=== PATIENT | female | born 1990 | race Caucasian/White ===

== ENCOUNTER 2019-08-25 13:44 | Emergency (ER) | payer BC, OTHER ==
[~2019-08-25] VITALS: Ht 170.1 cm; Wt 59.3 kg
[~2019-08-25 13:44] MED LIST: ACHD5005 PO; CPR500T PO; PHEN100T26 PO
--- NOTE | 2019-08-25 13:54 | ED General ---
General Stated Complaint: VOMITING, SEEN AT [facility] IN [facility] History of Present Illness Date Seen by Provider: Aug 25, 2019 Time Seen by Provider: 13:54 Initial Comments Patient is a 29-year-old female who comes to the emergency department with nausea and vomiting over the last 5 days. Her symptoms worsened over the last 24 hours. She was seen at [facility] and was given Zofran but this did not relieve her symptoms. She complains of general malaise. No fever. Denies abdominal pain other than when she is vomiting. No pelvic pain. Last menstrual cycle was 3 weeks earlier. No irregular vaginal bleeding or discharge. No fever. Denies urinary symptoms. Allergies and Home Medications Allergies Coded Allergies: No Known Drug Allergies (Unverified , 07/25/13) Home Medications Ciprofloxacin 500 Mg Tablet, 1 TAB PO BID Prescribed by: MICHELL BUENROSTRO on 07/25/13 033 Hydrocodone Bit/Acetaminophen 1 Each Tablet, 1 EACH PO Q6H PRN for PAIN Prescribed by: MICHELL BUENROSTRO on 07/25/13 033 Phenazopyridine Hcl 100 Mg Tablet, 1 TAB PO TID PRN for PAIN Prescribed by: MICHELL BUENROSTRO on 07/25/13 033 Promethazine HCl 25 Mg Supp.rect, 25 MG RC tidprn PRN for NAUSEA/VOMITING Prescribed by: POLI GRACE on 08/25/19 1517 Patient Home Medication List Home Medication List Reviewed: Yes Review of Systems Review of Systems Constitutional: see HPI EENTM: no symptoms reported Respiratory: no symptoms reported Cardiovascular: no symptoms reported Gastrointestinal: see HPI Genitourinary: no symptoms reported Musculoskeletal: no symptoms reported Skin: no symptoms reported All Other Systems Reviewed Negative Unless Noted: Yes Past Nemnqzh-Tddbzn-Qdlkue Hx Patient Social History Recent Foreign Travel: No Contact w/Someone Who Travel: No Physical Exam Vital Signs Vital Signs - First Documented 08/25/19 13:54 Temp 37.3 Pulse 71 Resp 18 B/P (MAP) 106/62 (77) Pulse Ox 98 O2 Delivery Room Air Capillary Refill : Height, Weight, BMI Height: '" Weight: lbs. oz. kg; BMI Method: General Appearance: No Apparent Distress, WD/WN Eyes: Bilateral Eye Normal Inspection, Bilateral Eye PERRL HEENT: PERRL/EOMI, Normal ENT Inspection Neck: Full Range of Motion, Normal Inspection, Supple Respiratory: Chest Non Tender, Lungs Clear Cardiovascular: Regular Rate, Rhythm, No Edema Gastrointestinal: Non Tender, Soft Extremity: Normal Capillary Refill Neurologic/Psychiatric: Alert, Oriented x3 Skin: Normal Color Progress/Results/Core Measures Suspected Sepsis SIRS Temperature: Pulse: Respiratory Rate: Laboratory Tests 08/25/19 14:30: White Blood Count 6.5 Blood Pressure / Mean: Laboratory Tests 08/25/19 14:30: Creatinine 0.82, Platelet Count 170, Total Bilirubin 0.4 Results/Orders Lab Results Laboratory Tests Test 08/25/19 14:08 08/25/19 14:30 Range/Units Urine Color YELLOW Urine Clarity CLEAR Urine pH 6.0 5-9 Urine Specific [place] >1.030 1.016-1.022 Urine Protein NEGATIVE NEGATIVE Urine Glucose (UA) NEGATIVE NEGATIVE Urine Ketones 2+ H NEGATIVE Urine Nitrite NEGATIVE NEGATIVE Urine Bilirubin NEGATIVE NEGATIVE Urine Urobilinogen 0.2 < = 1.0 MG/DL Urine Leukocyte Esterase NEGATIVE NEGATIVE Urine RBC (Auto) NEGATIVE NEGATIVE Urine RBC NONE /HPF Urine WBC NONE /HPF Urine Squamous Epithelial Cells 5-10 /HPF Urine Crystals NONE /LPF Urine Bacteria NONE /HPF Urine Casts NONE /LPF Urine Mucus MODERATE H /LPF Urine Culture Indicated NO Urine Test NEGATIVE NEGATIVE White Blood Count 6.5 4.3-11.0 10^3/uL Red Blood Count 5.32 4.35-5.85 10^6/uL Hemoglobin 15.8 11.5-16.0 G/DL Hematocrit 48 35-52 % Mean Corpuscular Volume 91 80-99 FL Mean Corpuscular Hemoglobin 30 25-34 PG Mean Corpuscular Hemoglobin Concent 33 32-36 G/DL Red Cell Distribution Width 13.0 10.0-14.5 % Platelet Count 170 130-400 10^3/uL Mean Platelet Volume 13.3 H 7.4-10.4 FL Neutrophils (%) (Auto) 76 H 42-75 % Lymphocytes (%) (Auto) 17 12-44 % Monocytes (%) (Auto) 6 0-12 % Eosinophils (%) (Auto) 2 0-10 % Basophils (%) (Auto) 0 0-10 % Neutrophils # (Auto) 4.9 1.8-7.8 X 10^3 Lymphocytes # (Auto) 1.1 1.0-4.0 X 10^3 Monocytes # (Auto) 0.4 0.0-1.0 X 10^3 Eosinophils # (Auto) 0.1 0.0-0.3 10^3/uL Basophils # (Auto) 0.0 0.0-0.1 10^3/uL Sodium Level 135 135-145 MMOL/L Potassium Level 3.8 3.6-5.0 MMOL/L Chloride Level 97 L 98-107 MMOL/L Carbon Dioxide Level 24 21-32 MMOL/L Anion Gap 14 5-14 MMOL/L Blood Urea Nitrogen 15 7-18 MG/DL Creatinine 0.82 0.60-1.30 MG/DL Estimat Glomerular Filtration Rate > 60 BUN/Creatinine Ratio 18 Glucose Level 104 70-105 MG/DL Calcium Level 10.4 H 8.5-10.1 MG/DL Corrected Calcium 8.5-10.1 MG/DL Total Bilirubin 0.4 0.1-1.0 MG/DL Aspartate Amino Transf (AST/SGOT) 19 5-34 U/L Alanine Aminotransferase (ALT/SGPT) 12 0-55 U/L Alkaline Phosphatase 66 40-136 U/L Total Protein 9.5 H 6.4-8.2 GM/DL Albumin 5.0 H 3.2-4.5 GM/DL Lipase 40 8-78 U/L My Orders Orders - POLI GRACE DO Urinalysis (08/25/19 14:01) Hcg,Qualitative Urine (08/25/19 14:01) Cbc With Automated Diff (08/25/19 14:01) Comprehensive Metabolic Panel (08/25/19 14:01) Prochlorperazine Injection (Compazine In (08/25/19 14:15) Diphenhydramine Injection (Benadryl Inje (08/25/19 14:15) Famotidine Injection (Pepcid Injection) (08/25/19 14:15) Ns Iv 1000 Ml (Sodium Chloride 0.9%) (08/25/19 14:15) Lipase (08/25/19 14:14) Ns Iv 1000 Ml (Sodium Chloride 0.9%) (08/25/19 15:00) Ondansetron Injection (Zofran Injectio (08/25/19 15:45) Medications Given in ED Current Medications Medications Dose Ordered Sig/Ashleigh Route Start Time Stop Time Status Last Admin Dose Admin Diphenhydramine HCl 25 mg ONCE ONCE IVP 08/25/19 14:15 08/25/19 14:16 DC 08/25/19 14:30 25 MG Famotidine 20 mg ONCE ONCE IVP 08/25/19 14:15 08/25/19 14:16 DC 08/25/19 14:29 20 MG Ondansetron HCl 4 mg ONCE ONCE IVP 08/25/19 15:45 08/25/19 15:46 DC 08/25/19 15:59 4 MG Prochlorperazine Edisylate 10 mg ONCE ONCE IV 08/25/19 14:15 08/25/19 14:16 DC 08/25/19 14:29 10 MG Vital Signs/I&O 08/25/19 13:54 Temp 37.3 Pulse 71 Resp 18 B/P (MAP) 106/62 (77) Pulse Ox 98 O2 Delivery Room Air Capillary Refill : Progress Note : Time: 14:00 Progress Note Patient is seen and examined on arrival to her room. Overall, her exam is reassuring. Her abdomen is soft and nontender and with no guarding or rebound, particularly in the right upper quadrant. Patient does appear mildly dry and dehydrated. Today, we will check basic labs, urinalysis, urine , and given IV fluids along with some medications for symptom relief. 14:45: Patient is re-examined. She is currently s/p IV compazine and benadryl and resting quietly. She does verbalize some relief of nausea symptoms. Bedside ultrasound is completed. The patient's gallbladder is easily visualized. Anterior wall is less than 3 mm thick. No pericholecystic fluid. No stones or sludge are seen. No tenderness in the right upper quadrant again on this exam. Labs pending. UA completed and neg but + ketones. Additional IVF's ordered. 15:30: Now c/o return of nausea. Zofran is ordered. 16:33: Patient is currently feeling improved. She is tolerating by mouth. Plan is for discharge home. She is given a prescription for promethazine suppositories. Recommended to follow up with primary care doctor or come back to the ER for any new or worsening symptoms. Departure Impression Primary Impression: Gastroenteritis Disposition: 01 HOME, SELF-CARE Condition: Improved Departure-Patient Inst. Referrals: MATT MERRITT MD (PCP/Family) Primary Care Physician Scripts Promethazine HCl (Phenergan) 25 Mg Supp.rect 25 MG RC tidprn PRN for NAUSEA/VOMITING, #8 SUPP.RECT Prov: POLI GRACE DO 08/25/19 POLI GRACE DO Aug 25, 2019 13:54 POS
[2019-08-25] MEDS ORDERED: diphenhydrAMINE 50 MG/ML INJ (BENADRYL) IVP ONE (14:15)
[2019-08-25] MEDS ORDERED: PROCHLORPERAZINE 10 MG/2ML INJ (COMPAZINE) IV ONE (14:15)
[2019-08-25] MEDS ORDERED: FAMOTIDINE 20MG/2ML IV (PEPCID) IVP ONE (14:15)
[2019-08-25] MEDS ORDERED: NS IV 1000 ML 1,000 ML IV SCH ×2 (14:15→15:00)
[2019-08-25 14:20] LABS: BILIRUBIN,URINE NEGATIVE (NEGATIVE); CLARITY,URINE CLEAR; COLOR,URINE YELLOW; GLUCOSE, URINE (UA) NEGATIVE (NEGATIVE); KETONES,URINE 2+ (NEGATIVE); LEUKOCYTE ESTERASE ,URINE NEGATIVE (NEGATIVE); NITRITE,URINE NEGATIVE (NEGATIVE); PROTEIN,URINE NEGATIVE (NEGATIVE)
[2019-08-25 14:43] LABS: HEMATOCRIT 48 % (35-52); HEMOGLOBIN 15.8 G/DL (11.5-16.0); MEAN CORPUSCULAR HEMOGLOBIN 30 PG (25-34); WHITE BLOOD COUNT 6.5 10^3/uL (4.3-11.0)
[2019-08-25 14:44] LABS: BASOPHILS % (AUTO) 0 % (0-10); EOSINOPHILS # (AUTO) 0.1 10^3/uL (0.0-0.3); EOSINOPHILS % (AUTO) 2 % (0-10); LYMPHOCYTES # (AUTO) 1.1 X 10^3 (1.0-4.0); LYMPHOCYTES % (AUTO) 17 % (12-44); MEAN CORPUSCULAR HGB CONC 33 G/DL (32-36); MEAN CORPUSCULAR VOLUME 91 FL (80-99); MEAN PLATELET VOLUME 13.3 FL (7.4-10.4); MONOCYTES # (AUTO) 0.4 X 10^3 (0.0-1.0); MONOCYTES % (AUTO) 6 % (0-12); NEUTROPHILS # (AUTO) 4.9 X 10^3 (1.8-7.8); NEUTROPHILS % (AUTO) 76 % (42-75); PLATELET COUNT 170 10^3/uL (130-400)
[2019-08-25 15:03] LABS: BUN/CREATININE RATIO 18; CARBON DIOXIDE 24 MMOL/L (21-32); CHLORIDE 97 MMOL/L (98-107); CREATININE SERUM 0.82 MG/DL (0.60-1.30); GFR ESTIMATED > 60; POTASSIUM 3.8 MMOL/L (3.6-5.0); SODIUM 135 MMOL/L (135-145)
[2019-08-25 15:04] LABS: ALANINE AMINOTRANSFERASE 12 U/L (0-55); ALKALINE PHOSPHATASE 66 U/L (40-136); BILIRUBIN,TOTAL 0.4 MG/DL (0.1-1.0); CALCIUM 10.4 MG/DL (8.5-10.1); GLUCOSE 104 MG/DL (70-105); LIPASE 40 U/L (8-78); TOTAL PROTEIN 9.5 GM/DL (6.4-8.2)
[2019-08-25] MEDS ORDERED: PROM25SU43 RC (15:17)
[2019-08-25] MEDS ORDERED: ONDANSETRON 4 MG/2 ML (SDV) Z0FRAN IVP ONE (15:45)
[2019-08-25 16:40] VITALS: BP 108/69
== END 2019-08-25 16:40 | disposition home or self-care (01) ==
LOC: ER FS 13:47 → MERGE 13:47 → ER FS 16:40
DX: K52.9 Noninfective gastroenteritis and colitis, unspecified (principal)
CPT/HCPCS: 36415; 80053; 81000; 83690; 84703; 85025; 96361; 96374; 96375

== ENCOUNTER → 2019-11-28 | Outpatient (CLI) | payer BC ==
[~2019-11-28] MED LIST changes: +PROM25SU43 RC
== END ==
LOC: LAB 10:51
PROVIDERS: ATTEND Family Medicine
DX: Z34.80 Encounter for supervision of other normal pregnancy, unspecified trimester (principal)

== ENCOUNTER → 2020-02-20 | Outpatient (CLI) | payer BC ==
[2020-02-20 10:40] LABS: HEMATOCRIT 34 % (35-52); HEMOGLOBIN 10.8 G/DL (11.5-16.0); MEAN CORPUSCULAR HEMOGLOBIN 30 PG (25-34); MEAN CORPUSCULAR HGB CONC 32 G/DL (32-36); MEAN CORPUSCULAR VOLUME 93 FL (80-99); WHITE BLOOD COUNT 11.1 10^3/uL (4.3-11.0)
[2020-02-20 10:41] LABS: BASOPHILS % (AUTO) 0 % (0-10); EOSINOPHILS % (AUTO) 9 % (0-10); LYMPHOCYTES % (AUTO) 19 % (12-44); MEAN PLATELET VOLUME 13.4 FL (7.4-10.4); MONOCYTES % (AUTO) 6 % (0-12); NEUTROPHILS % (AUTO) 65 % (42-75); PLATELET COUNT 160 10^3/uL (130-400)
[2020-02-20 10:42] LABS: LYMPHOCYTES # (AUTO) 2.1 X 10^3 (1.0-4.0); MONOCYTES # (AUTO) 0.7 X 10^3 (0.0-1.0); NEUTROPHILS # (AUTO) 7.2 X 10^3 (1.8-7.8)
== END ==
LOC: LAB FS 10:02
PROVIDERS: ATTEND Family Medicine
DX: Z34.83 Encounter for supervision of other normal pregnancy, third trimester (principal); Z3A.00 Weeks of gestation of pregnancy not specified
CPT/HCPCS: 36415; 82950; 85025; 86780

== ENCOUNTER → 2020-04-16 | Outpatient (CLI) | payer BC | LOC: LABNPT 15:15 | PROVIDERS: ATTEND Family Medicine | DX: Z34.80 Encounter for supervision of other normal pregnancy, unspecified trimester (principal) | CPT/HCPCS: 87081 ==

== ENCOUNTER 2020-05-09 19:55 | Inpatient (IN) | payer BC ==
[~2020-05-09] VITALS: Ht 170.2 cm; Wt 76.9 kg
--- NOTE | 2020-05-09 20:10 | NUR ---
HANNA FELIX presented to unit via ambulation from ED, accompanied by , for INDUCTION. HANNA FELIX weighed, gowned, voided, and to bed. EFHM and TOCO applied, VS taken. HANNA FELIX oriented to bed controls, call light, TV, heat, and A/C controls.
[2020-05-09] MEDS ORDERED: MINERAL OIL CONCENTRATE 99.9% 15 ML UDC TOP PRN (20:15)
[2020-05-09 20:20] VITALS: BP 125/68
[2020-05-09] MEDS: D5 LR IV SOLUTION 1,000 ML IV SCH (20:58)
[2020-05-09 21:11] LABS: BASOPHILS % (AUTO) 0 % (0-10); EOSINOPHILS # (AUTO) 0.3 10^3/uL (0.0-0.3); EOSINOPHILS % (AUTO) 3 % (0-10); HEMATOCRIT 32 % (35-52); HEMOGLOBIN 9.9 G/DL (11.5-16.0); LYMPHOCYTES # (AUTO) 2.4 X 10^3 (1.0-4.0); LYMPHOCYTES % (AUTO) 24 % (12-44); MEAN CORPUSCULAR HEMOGLOBIN 27 PG (25-34); MEAN CORPUSCULAR HGB CONC 31 G/DL (32-36); MEAN CORPUSCULAR VOLUME 86 FL (80-99); MONOCYTES # (AUTO) 0.7 X 10^3 (0.0-1.0); MONOCYTES % (AUTO) 7 % (0-12); NEUTROPHILS # (AUTO) 6.8 X 10^3 (1.8-7.8); NEUTROPHILS % (AUTO) 67 % (42-75); PLATELET COUNT 146 10^3/uL (130-400); RED CELL DISTRIBUTION WIDTH 14.6 % (10.0-14.5); WHITE BLOOD COUNT 10.2 10^3/uL (4.3-11.0)
[2020-05-09] MEDS ORDERED: MISOPROSTOL 100 MCG (CYTOTEC) TAB ONE (21:46)
[2020-05-09] MEDS ORDERED: MISOPROSTOL 100 MCG (CYTOTEC) TAB PV SCH (22:00)
[2020-05-09 22:15] VITALS: BP 125/68
[2020-05-10] VITALS (74 sets, daily range): BP systolic 92–133; BP diastolic 53–81
[2020-05-10] MEDS: D5 LR IV SOLUTION 1,000 ML IV SCH ×2 (00:14→08:14)
--- NOTE | 2020-05-10 03:10 | NUR ---
Dr. Zimmer called with update on pt status. Informed of contraction pattern and recent SVE. Informed that pt just received one dose of cytotec and the second dose was held. Upon hearing of pt request of IV pain meds, orders 50mg IV Fentanyl to be given q1hr PRN for pain. Addendum: 05/10/20 at 0313 by GELY PIERSON RN orders 50mcg of IV Fentanyl to be given, not 50mg of IV Fentanyl.
[2020-05-10] MEDS ORDERED: fentaNYL INJECTION 100 MCG/2 ML AMP ONE ×2 (03:11→10:13)
[2020-05-10] MEDS: fentaNYL INJECTION 100 MCG/2 ML AMP IVP PRN ×2 (03:20→06:49)
[2020-05-10] MEDS: OXYTOCIN PRE-MIX DRIP 500 ML IV SCH ×2 (07:07→14:41)
[2020-05-10] MEDS ORDERED: ONDANSETRON 4 MG/2 ML (SDV) Z0FRAN ONE (09:27)
[2020-05-10] MEDS ORDERED: ONDANSETRON 4 MG/2 ML (SDV) Z0FRAN IVP PRN (09:30)
[2020-05-10] MEDS ORDERED: fentaNYL 2 mcg/ml BUPIVA 0.125 100 ML ONE (09:41)
[2020-05-10] MEDS ORDERED: BUPIVACAINE 0.25% 30 ML (SENSORCAINE) VIAL ONE (10:13)
--- NOTE | 2020-05-10 10:17 | NUR ---
1017 Dr. Avalos here for epidural placement. Procedure explained, consent reviewed and signed by anesthesia. Questions answered to patient's satisfaction. Time out taken to verify correct patient/procedure. 1021 Patient up to side of bed, assisted into sitting position. 1025 Betadine prep done x3 and sterile drape applied. 1026 Local done, see anesthesia record. 1033 Test dose given, see anesthesia record for drug and dosage. Epidural catheter secured in place. Epidural placement complete. 1037 Assisted back into bed, monitors adjusted. Epidural dosed, see anesthesia record. Epidural infusing @12cc/hr stated per pump; see EMAR for further. Patient tolerated procedure well.
[2020-05-10] MEDS ORDERED: LIDOCAINE 1% INJ 20 ML 20 ML VIAL ONE (13:24)
[2020-05-10] MEDS ORDERED: LACTATED RINGERS 1,000 ML IV ONE (14:02)
[2020-05-10] MEDS ORDERED: fentaNYL 2 mcg/ml BUPIVA 0.125 100 ML IV SCH (14:02)
[2020-05-10] MEDS ORDERED: CATHETER FLUSH 10 ML SYR IV PRN (14:15)
[2020-05-10] MEDS ORDERED: diphenhydrAMINE 50 MG/ML INJ (BENADRYL) IV PRN (14:15)
[2020-05-10] MEDS ORDERED: NALOXONE 0.4 MG/ML 1 ML (NARCAN) VIAL IV PRN (14:15)
[2020-05-10] MEDS ORDERED: ONDANSETRON 4 MG/2 ML (SDV) Z0FRAN IV PRN (14:15)
--- NOTE | 2020-05-10 14:22 | History & Physical-OB ---
OB - Chief Complaint & HPI Date/Time Date of Admission: Date of Admission: May 09, 2020 at 19:55 Date seen by a Provider: May 10, 2020 Time Seen by a Provider: 14:00 Chief Complaint/History OB-Reason for Admission/Chief: Induction of Labor Hx : 2 Hx Para: 1 Expected Date of Delivery: May 16, 2020 Gestational Age in Weeks: 39 Gestational Age in Days: 0 Indication for induction: maternal discomfort Admission Nurse Assessment Rev: Yes Allergies and Home Medications Allergies Coded Allergies: No Known Drug Allergies (Unverified , 07/25/13) Home Medications Promethazine HCl 25 Mg Supp.rect, 25 MG RC tidprn PRN for NAUSEA/VOMITING Prescribed by: POLI GRACE on 08/25/19 1517 Patient Home Medication List Home Medication List Reviewed: Yes OB - History Hx of Present Ultrasounds: Normal mid trimester US Obstetrical Complications: None Medical Complications: None Delivery History Hx Blood Disorders: No Adverse Rxn to Tranfusion: No Patient Past Medical History previously healthy Social History/Family History HIV/AIDS: No Recent Infectious Disease Expo: No Sexually Transmitted Disease: No Alcohol Use: Denies Use Recreational Drug Use: No Immunizations Hepatitis A: Yes Hepatitis B: Yes OB - Admission Exam Physical Exam Vitals: Vital Signs 05/10/20 05/10/20 11:14 12:18 Temp 36.6 Pulse 55 Resp 18 B/P (MAP) 106/63 (77) Pulse Ox 99 O2 Delivery Room Air HEENT: NCAT Heart: Rhythm Normal Lungs: Clear Abdomen: Gravid Extremities: Normal Reflexes: Normal Cervical Dilatation: 10cm Effacement: 100% Station: +2 Membranes: Ruptured Amniotic Fluid: Clear Heart Rate: 130's Accelerations: Accelerations Present Decelerations: Early Decelerations Short Term Variability: Present Intermediate Variability: Average (6-25) Contractions on Admission: < 5 Minutes Apart Labs Laboratory Tests Test 05/09/20 20:50 Range/Units White Blood Count 10.2 4.3-11.0 10^3/uL Red Blood Count 3.67 L 4.35-5.85 10^6/uL Hemoglobin 9.9 L 11.5-16.0 G/DL Hematocrit 32 L 35-52 % Mean Corpuscular Volume 86 80-99 FL Mean Corpuscular Hemoglobin 27 25-34 PG Mean Corpuscular Hemoglobin Concent 31 L 32-36 G/DL Red Cell Distribution Width 14.6 H 10.0-14.5 % Platelet Count 146 130-400 10^3/uL Mean Platelet Volume 7.4-10.4 FL Neutrophils (%) (Auto) 67 42-75 % Lymphocytes (%) (Auto) 24 12-44 % Monocytes (%) (Auto) 7 0-12 % Eosinophils (%) (Auto) 3 0-10 % Basophils (%) (Auto) 0 0-10 % Neutrophils # (Auto) 6.8 1.8-7.8 X 10^3 Lymphocytes # (Auto) 2.4 1.0-4.0 X 10^3 Monocytes # (Auto) 0.7 0.0-1.0 X 10^3 Eosinophils # (Auto) 0.3 0.0-0.3 10^3/uL Basophils # (Auto) 0.0 0.0-0.1 10^3/uL OB - Assessment/Plan/Diagnosis Assessment Assessment: active labor Admission Dx Induction of labor at 39 1/7 wga. Admission Status: Inpatient Order (span 2 midnights) Reason for Inpatient Admission: Induction of labor. Plan Plan: Induction Induction Method: per Pitocin Protocol Other Plan AROM this morning, pitocin, epidural for pain. GBS negative. MATT MERRITT MD May 10, 2020 14:22
[2020-05-10] MEDS ORDERED: OXYTOCIN PRE-MIX DRIP 500 ML IV SCH (14:24)
--- NOTE | 2020-05-10 14:24 | OB Labor & Delivery Record ---
Vag Delivery Note Vag Delivery Note Date of Delivery: 05/10/20 Preoperative Diagnosis: Adrienne Plummer is a (29 /Para / , Gestational Age (wks)39with [1/7 days] Postoperative Diagnosis: Same Surgeon: MATT MERRITT Paint Grinder: [none] Anesthesia: [epidural] Delivery Type: [] Findings: Viable [female] , apgars [8/9], weight [7 pounds 8 ounces] Lacerations: Intact placenta with 3 vessel cord. No nuchal cord, body cord or shoulder dystocia Estimated Blood Loss: [300] ml Complications: None Condition: Stable Description of Procedure: The patient is a 29 year old female who presented [for induction]. She was admitted and informed consent was obtained. Her labor course was remarkable for [nothing] She progressed to complete dilatation and began to push. She was then set up for delivery. The 's head was delivered atraumatically in the [OA] position. The shoulders and remainder of the 's body were then delivered without difficulty. Upon delivery, the head was held below the level of the perineum and the mouth and nares were bulb suctioned. The cord was doubly clamped and cut on maternal abdomen by father of baby after 60 seconds. An intact placenta with 3-vessel cord delivered via Ramon and there was found to be minimal bleeding.~ Vigorous fundal massage was performed and the fundus was found to be firm. IV oxytocin was given. Examination of the vagina and perineum revealed no lacerations. Following the repair, sponge, instrument and needle counts were correct. Mom and baby were both in stable condition in the labor suite. Vitals - Labs Vital Signs - I&O Vital Signs Date Time Temp Pulse Resp B/P (MAP) Pulse Ox O2 Delivery O2 Flow Rate FiO2 05/10/20 12:18 55 18 106/63 (77) 99 Room Air 05/10/20 12:02 53 18 98/55 (69) 98 Room Air 05/10/20 11:46 62 18 95/58 (70) 99 Room Air 05/10/20 11:32 57 18 103/66 (78) 97 Room Air 05/10/20 11:17 60 18 103/71 (82) 98 Room Air 05/10/20 11:14 36.6 57 18 105/61 (76) 98 Room Air 05/10/20 11:08 60 18 106/67 (80) 98 Room Air 05/10/20 10:58 59 18 107/63 (78) 96 Room Air 05/10/20 10:50 62 18 110/61 (77) 96 Room Air 05/10/20 10:48 64 18 115/66 (82) 98 Room Air 05/10/20 10:45 65 18 108/60 (76) 98 Room Air 05/10/20 10:41 65 18 111/59 (76) 99 Room Air 05/10/20 10:39 66 18 109/68 (82) 100 Room Air 05/10/20 10:35 68 18 110/70 (83) 100 Room Air 05/10/20 10:32 70 18 111/71 (84) 100 Room Air 05/10/20 10:29 72 18 122/79 (93) 100 Room Air 05/10/20 10:26 70 18 117/75 (89) 100 Room Air 05/10/20 10:23 72 18 117/68 (84) 100 Room Air 05/10/20 10:21 73 18 110/58 (75) 100 Room Air 05/10/20 10:05 64 18 120/73 (89) Room Air 05/10/20 09:49 71 18 112/78 (89) Room Air 05/10/20 09:35 63 18 108/73 (85) Room Air 05/10/20 09:19 61 18 117/76 (90) Room Air 05/10/20 09:05 71 18 123/81 (95) Room Air 05/10/20 08:49 67 18 110/73 (85) Room Air 05/10/20 08:34 36.4 71 18 103/72 (82) Room Air 05/10/20 08:19 59 18 110/72 (85) Room Air 05/10/20 08:04 56 18 105/67 (80) Room Air 05/10/20 07:50 68 18 103/59 (74) Room Air 05/10/20 07:33 55 18 100/56 (71) Room Air 05/10/20 07:20 36.3 56 18 111/55 (73) Room Air 05/10/20 06:17 36.9 68 18 115/78 (90) Room Air 05/10/20 05:17 65 18 107/64 (78) Room Air 05/10/20 04:17 58 18 106/66 (79) Room Air 05/10/20 03:17 62 18 108/64 (79) Room Air 05/10/20 02:17 63 18 93/55 (68) Room Air 05/10/20 01:17 78 18 96/53 (67) Room Air 05/10/20 00:15 36.4 68 18 98/53 (68) Room Air 05/09/20 22:15 37.0 80 18 98 Room Air 05/09/20 20:20 37.0 80 18 125/68 (87) 98 Room Air I & O 05/10/20 06:59 Intake Total 1000 ml Balance 1000 ml Labs Laboratory Tests 05/09/20 20:50: White Blood Count 10.2, Red Blood Count 3.67L, Hemoglobin 9.9L, Hematocrit 32L, Mean Corpuscular Volume 86, Mean Corpuscular Hemoglobin 27, Mean Corpuscular Hemoglobin Concent 31L, Red Cell Distribution Width 14.6H, Platelet Count 146, Mean Platelet Volume , Neutrophils (%) (Auto) 67, Lymphocytes (%) (Auto) 24, Monocytes (%) (Auto) 7, Eosinophils (%) (Auto) 3, Basophils (%) (Auto) 0, Neutrophils # (Auto) 6.8, Lymphocytes # (Auto) 2.4, Monocytes # (Auto) 0.7, Eosinophils # (Auto) 0.3, Basophils # (Auto) 0.0 MATT MERRITT MD May 10, 2020 14:24
[2020-05-10] MEDS ORDERED: WITCH HAZEL(TUCKS) 40 EA JAR TOP PRN (14:30)
[2020-05-10] MEDS ORDERED: MEASLES,MUMPS,RUBELLA 1 EA INJ SQ ONE (14:30)
[2020-05-10] MEDS ORDERED: BENZOCAINE/MENTHOL (DERMOPLAST) 60 ML CAN TP PRN (14:30)
[2020-05-10] MEDS ORDERED: ACETAMINOPHEN 500 MG TAB (TYLENOL) ONE (16:10)
--- NOTE | 2020-05-10 16:11 | NUR ---
REFER TO LABOR FLOW SHEET.
[2020-05-10] MEDS: ACETAMINOPHEN 500 MG TAB (TYLENOL) PO SCH ×2 (16:17→23:49)
--- NOTE | 2020-05-10 19:10 | NUR ---
PT ASSISTED UP TO THE BATHROOM WITH STAND BY ASSIST X1. + VOID, + PERICARE. NEW PAD AND PANTIES ON, NEW GOWN. PT TRANSFERRED FROM -319 TO -309 VIA W/C IN STABLE CONDITION ACC BY THIS RN, S/O AND INFANT.
[2020-05-10] MEDS: IBUPROFEN 600 MG (MOTRIN) TAB PO SCH (19:39)
--- NOTE | 2020-05-10 21:15 | NUR ---
Patient ambulated to bathroom with stand by assist x1 per this RN. Patient denies feeling unsteady or lightheaded when walking. Reviewed joshua care with patient. Positive void achieve. Reviewed with patient to call anytime if she begins to feel unsteady. Patient verbalizes understanding. No other needs at this time.
[2020-05-10] MEDS ORDERED: CATHETER FLUSH 10 ML SYR IV SCH (22:00)
[2020-05-10] MEDS: DOCUSATE SODIUM 100 MG (COLACE) CAP PO SCH (23:48)
--- NOTE | 2020-05-11 03:00 | NUR ---
Patient set up and oriented to electric breast pump.
[2020-05-11 03:39] VITALS: BP 95/63
[2020-05-11 05:37] LABS: BASOPHILS % (AUTO) 0 % (0-10); EOSINOPHILS # (AUTO) 0.2 10^3/uL (0.0-0.3); EOSINOPHILS % (AUTO) 2 % (0-10); HEMATOCRIT 30 % (35-52); HEMOGLOBIN 9.2 G/DL (11.5-16.0); LYMPHOCYTES # (AUTO) 2.3 X 10^3 (1.0-4.0); LYMPHOCYTES % (AUTO) 20 % (12-44); MEAN CORPUSCULAR HEMOGLOBIN 27 PG (25-34); MEAN CORPUSCULAR HGB CONC 31 G/DL (32-36); MEAN CORPUSCULAR VOLUME 88 FL (80-99); MEAN PLATELET VOLUME 13.1 FL (7.4-10.4); MONOCYTES # (AUTO) 0.8 X 10^3 (0.0-1.0); MONOCYTES % (AUTO) 7 % (0-12); NEUTROPHILS # (AUTO) 8.4 X 10^3 (1.8-7.8); NEUTROPHILS % (AUTO) 72 % (42-75); PLATELET COUNT 125 10^3/uL (130-400); RED CELL DISTRIBUTION WIDTH 14.4 % (10.0-14.5); WHITE BLOOD COUNT 11.6 10^3/uL (4.3-11.0)
[2020-05-11 07:25] VITALS: BP 111/75
--- NOTE | 2020-05-11 07:32 | Discharge Summary ---
Discharge Inst-[facility] Follow Up/Instructions Goal/Follow Up: [address] Merritt Activity Activity: Activity as Tolerated Driving Instructions: You May Drive NO SMOKING: NO SMOKING Nothing Inside Vagina: No Douching, No [place], No Tampons Diet Discharge Diet: No Restrictions Symptoms to Report to : Fever Over 101 Degrees F, Vaginal Bleeding Increase MATT MERRITT MD May 11, 2020 07:32
--- NOTE | 2020-05-11 07:34 | Discharge Summary ---
Diagnosis/Chief Complaint Date of Admission May 09, 2020 at 19:55 Date of Discharge May 11, 2020 Admission Diagnosis Admission Diagnosis Induction of labor at 39 1/7 wga. Discharge Diagnosis Vaginal delivery at 39 1/7 wga. Discharge Summary-OBS Procedures None. Discharge Physical Examination Allergies: Coded Allergies: No Known Drug Allergies (Unverified , 07/25/13) Vitals & I&Os Intake and Output 05/11/20 00:00 Intake Total 1000 ml Balance 1000 ml Vital Sign - Last 12Hours Date Time Temp Pulse Resp B/P (MAP) Pulse Ox O2 Delivery O2 Flow Rate FiO2 05/11/20 03:39 36.4 64 18 95/63 (74) 98 Room Air General Appearance: Alert, Oriented X3 HEENT: Atraumatic Respiratory: Clear to Auscultation Cardiovascular: Regular Rate Abdominal: Normal Bowel Sounds Extremities: No Clubbing Psych/Mental Status: Mental Status NL Hospital Course Was the Problem List Reviewed?: Yes Unremarkable post- course. Labs Laboratory Tests 05/11/20 05:29: White Blood Count 11.6H, Red Blood Count 3.37L, Hemoglobin 9.2L, Hematocrit 30L, Mean Corpuscular Volume 88, Mean Corpuscular Hemoglobin 27, Mean Corpuscular Hemoglobin Concent 31L, Red Cell Distribution Width 14.4, Platelet Count 125L, Mean Platelet Volume 13.1H, Neutrophils (%) (Auto) 72, Lymphocytes (%) (Auto) 20, Monocytes (%) (Auto) 7, Eosinophils (%) (Auto) 2, Basophils (%) (Auto) 0, Neutrophils # (Auto) 8.4H, Lymphocytes # (Auto) 2.3, Monocytes # (Auto) 0.8, Eosinophils # (Auto) 0.2, Basophils # (Auto) 0.0 Discharge Instructions to patient/family Please see electronic discharge instructions given to patient. Discharge Medications Reviewed and agree with Discharge Medication list on patient's Discharge Instruction sheet Clinical Quality Measures DVT/VTE Risk/Contraindication: Risk Factor Score Per Nursin RFS Level Per Nursing on Admit: 1=Low/No VTE PPX MATT MERRITT MD May 11, 2020 07:34
[2020-05-11] MEDS: IBUPROFEN 600 MG (MOTRIN) TAB PO SCH ×3 (07:39→13:56)
[2020-05-11] MEDS: DOCUSATE SODIUM 100 MG (COLACE) CAP PO SCH (07:40)
--- NOTE | 2020-05-11 08:17 | Anesthesia-Regional Post-Op ---
Regional Patient Condition Mental Status: Alert, Oriented x3 Circulation: Same as Pre-Op Headache: Absent Sensation: Full Recovery Motor Block: Absent Post Op Complications Complications None Follow Up Care/Instructions Patient Instructions None needed. Anesthesia/Patient Condition Patient is doing well, no complaints, stable vital signs, no apparent adverse anesthesia problems. No complications reported per nursing. JACQUELINE NELSON CRNA May 11, 2020 08:17
[2020-05-11 13:56] VITALS: BP 105/75
--- NOTE | 2020-05-11 15:30 | NUR ---
HANNA FELIX demonstrates understanding of discharge instructions and accurately returns instructions upon questioning. Copy of Post-Discharge Instructions given to pt. HANNA FELIX is able to manage continuing needs after discharge. Patients belongings returned to . Pt requesting to wait and get mmr vaccine with Dr Zimmer in 1 week instead of prior to discharge.
--- NOTE | 2020-05-11 16:20 | NUR ---
Patient discharged from 3309-1 on 05/11/20 at 1620. HANNA FELIX left floor via [ambulation], accompanied by [so and staff].
== END 2020-05-11 16:20 | disposition home or self-care (01) | DRG 807 ==
LOC: LDRP 19:55
PROVIDERS: ADMIT Family Medicine; ATTEND Family Medicine
PROC: 10E0XZZ Delivery of Products of Conception, External Approach (ICD-10-PCS; principal; 2020-05-09)
PROC: 3E0P7GC Introduction of Other Therapeutic Substance into Female Reproductive, Via Natural or Artificial Opening (ICD-10-PCS; 2020-05-09)
DX: O80 Encounter for full-term uncomplicated delivery (principal); Z37.0 Single live birth; Z3A.39 39 weeks gestation of pregnancy
CPT/HCPCS: 36415; 85025; 86850; 86900; 86901

== ENCOUNTER → 2020-05-22 | Outpatient (CLI) | payer BC | LOC: LABNPT 15:24 | PROVIDERS: ATTEND Family Medicine | DX: N39.0 Urinary tract infection, site not specified (principal); R50.9 Fever, unspecified | CPT/HCPCS: 87088 ==